=== PATIENT | male | born 1980 | race Caucasian/White ===

== ENCOUNTER 2024-01-19 16:58 | Emergency (ER) | payer BC ==
[~2024-01-19] VITALS: Ht 188 cm; Wt 142.4 kg
[2024-01-19 17:16] VITALS: BP 151/97; PULSE 95; RESP 18; TEMP 98.1; O2SAT 99
== END 2024-01-19 20:35 | disposition left against medical advice (07) ==
LOC: MED 16:58
DX: R20.0 Anesthesia of skin (principal); Z53.21 Procedure and treatment not carried out due to patient leaving prior to being seen by health care provider
CPT/HCPCS: 82948